=== PATIENT | male | born 1970 | race Hispanic/Latino ===

== ENCOUNTER 2017-09-06 04:03 | Emergency (ER) | payer OTHER ==
[2017-09-06 04:17] VITALS: BP 160/100
[2017-09-06] MEDS ORDERED: MOTRIN PO ONE ×2 (04:17→04:32)
--- NOTE | 2017-09-06 04:47 | XRay Report ---
FINAL REPORT EXAM: XR ANKLE 3+V LT HISTORY: Lt ankle pain post impact, trip, fall, stepped in a hole TECHNIQUE: Three views of the left ankle were obtained. FINDINGS: There is localized soft tissue fullness along the medial aspect of the distal calf. The ankle mortise appears intact. There is no evidence of fracture or dislocation. IMPRESSION: Localized soft tissue fullness along the medial aspect of the distal calf. No evidence of fracture or dislocation otherwise.
--- NOTE | 2017-09-06 04:48 | XRay Report ---
FINAL REPORT EXAM: XR FOOT 3+V LT HISTORY: impact, trip, fall, stepped in a hole TECHNIQUE: Three views of the left foot were submitted. FINDINGS: There is no evidence of fracture or dislocation. The soft tissues are well maintained. IMPRESSION: No acute process.
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
== END 2017-09-06 06:00 | disposition home or self-care (01) ==
LOC: ED 04:03
DX: S93.402A Sprain of unspecified ligament of left ankle, initial encounter (principal); W18.30XA Fall on same level, unspecified, initial encounter; Y93.02 Activity, running; Y99.8 Other external cause status; Y92.89 Other specified places as the place of occurrence of the external cause